=== PATIENT | male | born 1955 | race Caucasian/White ===

== ENCOUNTER 2018-08-04 14:33 | Outpatient (REF) | payer MEDICAID, SELFPAY ==
[2018-08-07 09:16] LABS: PSA, Screening 1.6 ng/ml (0-4.5)
== END 2018-08-04 14:53 ==
LOC: NCHCN 14:33
PROVIDERS: Visit Provider Nurse Practitioner Family
DX: K11.7 Disturbances of salivary secretion (principal); R41.3 Other amnesia; I82.402 Acute embolism and thrombosis of unspecified deep veins of left lower extremity; F41.9 Anxiety disorder, unspecified; R13.10 Dysphagia, unspecified; J44.9 Chronic obstructive pulmonary disease, unspecified; Z87.891 Personal history of nicotine dependence; Z00.00 Encounter for general adult medical examination without abnormal findings
CPT/HCPCS: 84153

== ENCOUNTER 2018-11-07 09:42 | Outpatient (REF) | payer MEDICAID, SELFPAY | END 2018-11-07 10:02 | LOC: NCHCN 09:42 | PROVIDERS: Visit Provider Nurse Practitioner Family | DX: R13.10 Dysphagia, unspecified (principal); K11.7 Disturbances of salivary secretion | CPT/HCPCS: 83519 ==

== ENCOUNTER 2019-04-05 22:37 | Outpatient (REF) | payer MEDICAID, SELFPAY ==
[2019-04-05 21:32] LABS: Folate 16.8 ng/mL (8.6-20.0)
== END 2019-04-05 22:57 ==
LOC: NCHCN 22:37
PROVIDERS: PCP Nurse Practitioner Family; Visit Provider Nurse Practitioner Family
DX: R53.83 Other fatigue (principal)
CPT/HCPCS: 82746

== ENCOUNTER 2020-02-26 08:12 | Outpatient (CLI) | payer MEDICAID, SELFPAY ==
[2020-02-27 03:57] LABS: COVID-19 RT-PCR UVMMC Result Negative (Negative)
== END 2020-02-26 08:32 ==
PROVIDERS: PCP Nurse Practitioner Family; Visit Provider Family Medicine
DX: Z11.59 Encounter for screening for other viral diseases (principal)
CPT/HCPCS: U0003

== ENCOUNTER 2020-02-29 02:47 | Outpatient (CLI) | payer MEDICAID, SELFPAY ==
--- NOTE | 2020-03-03 16:01 | W.PFT ---
Date of service: 02/29/20 Time of Service: 10:04 Pulmonary Function Test Result Interpretation Spirometry: Shows mild obstructive airways disease. No bronchodilator testing was carried out. Respiratory neuromuscular function testing shows extremely low MEP, with slightly low MIP. MVV was not carried out. Lung Volumes: Not done Diffusion Capacity: Not done Airway Pressure: Not done Impression mild obstructive airways disease. No bronchodilator testing was carried out. Respiratory neuromuscular function testing shows extremely low MEP, with slightly low MIP. MVV was not carried out. Clinical correlation recommended Clinical Correlation therefore is recommended.
== END 2020-02-29 03:07 ==
PROVIDERS: PCP Nurse Practitioner Family; Visit Provider Psychiatry & Neurology Neurology
DX: G12.22 Progressive bulbar palsy (principal); R06.09 Other forms of dyspnea; Z87.891 Personal history of nicotine dependence
CPT/HCPCS: 94010

== ENCOUNTER 2020-12-11 16:01 | Emergency (ER) | payer MEDICARE, MEDICAID, SELFPAY ==
[2020-12-11 16:14] VITALS: BP 134/85; PULSE 96; RESP 18; TEMP 36.7; O2SAT 97
--- NOTE | 2020-12-11 16:54 | ED.GENADUL_ITS ---
Discharge Plan Disposition Patient Disposition: HOME Condition: Stable Discharge Details Clinical Impression: Trouble swallowing Primary Care Provider: Harika Alva ED Provider: Kim Iglesias Home Meds and New Rx's Prescriptions: Continued Flovent HFA 110 mcg/actuation HFA aerosol inhaler 1 puff IH BID RF: 0 scopolamine base 1 mg over 3 days patch 3 day 1 patch TD Q72H Qty: 10 RF: 3 atropine 1 % drops 1 drp PO .COMPLEX Qty: 15 RF: 3 epinephrine [EpiPen 2-James] 0.3 MG/0.3 ML auto-injector 0.3 mg IM ONCE PRNRF: 0 Combivent Respimat 4 GM mist 1 puff Inhalation BID RF: 0 clonazepam 0.5 MG tablet 0.25 - 0.5 mg PO PRN PRNRF: 0 No Action disulfiram [Antabuse] 500 mg tablet 500 mg PO BID Qty: 90 RF: 0 Discharge Instructions Instructions: Esophageal Foreign Body (ED), Dysphagia (ED) Additional Instructions: Please follow-up as directed by Dr. Marie and hospice care team. You may try Gauri-Drumore, suction. Follow up with primary care provider in 3-5 days. Return to ED sooner if any worsening or concerns. Increase oral fluids. Referrals: Harika Alva [Primary Care Provider] - Tila Chavarria MD [ [facility] STAFF PHYSICIAN] - Discharge Data Discharge Date/Time-TO BE ENTERED AT DEPARTURE: 12/11/20 18:22 Medical Decision Making 65-year-old male with history of ALS presents to the ER with chief complaint difficulty swallowing. He states that he is on a soft and liquid diet mostly due to his history of ALS. He does have chronic dysphagia. He states that he was eating cake, soup and yogurt earlier today and is having trouble swallowing his secretions. They are concerned for possible aspiration. He does have some rhochi noted to his left lower lobe which was also found by the hospice nurse today per his caregiver. He is a palliative and hospice care patient, he has a past medical history of Lyme disease syndrome, COPD, DNR/DNI, anxiety, prior shortness of breath. I did originally given patient wall suction, IV normal saline ordered labs and chest x-ray. Ordered effervesent flurries for possible foreign body. 1725: Spoke with Dr. Tila Chavarria with Palliative care who is very familiar with patients care, she recommends holding off on any work-up including chest x-ray and labs including his chronic condition of ALS patient is on hospice. She agrees to come in to evaluate patient. I did discuss this with patient and caregiver inquired if patient is aspirating would he want to be placed on antibiotics, patient shakes his head no. 1754: Dr. Chavarria Is here at bedside for patient evaluation. 181: Dr. Chavarria states that patient would like to be discharged home with no intervention. She remained hemodynamically stable throughout stay O2 sat 96% to 97% on room air, plan to discharge. HPI General Mode of arrival: ambulatory . Date/Time Provider Initiated Documentation: 12/11/20 16:12 . Limitations to Documentation: physical limitation (Nonverbal due to ALS) . Information obtained by: patient, family and old records reviewed . HPI Narrative: 65-year-old male with history of ALS presents to the ER with chief complaint difficulty swallowing. He states that he is on a soft and liquid diet mostly due to his history of ALS. He does have chronic dysphagia. He states that he was eating cake, soup and yogurt earlier today and is having trouble swallowing his secretions. They are concerned for possible aspiration. He does have some rhochi noted to his left lower lobe which was also found by the hospice nurse today per his caregiver. He is a palliative and hospice care patient, he has a past medical history of Lyme disease syndrome, COPD, DNR/DNI, anxiety, prior shortness of breath. Related Data Home Medications Medication Instructions Recorded Confirmed clonazepam 0.25 - 0.5 mg PO PRN PRN 08/26/15 12/11/20 epinephrine [EpiPen 2-James] 0.3 mg IM ONCE PRN 07/11/17 12/11/20 Combivent Respimat 1 puff INHALATION BID inhaler 01/17/18 12/11/20 fluticasone propionate 110 1 puff IH BID 12/25/19 12/11/20 mcg/actuation HFA aerosol inhaler disulfiram 500 mg tablet 500 mg PO BID #90 tab 07/04/20 07/04/20 atropine 1 % eye drops 1 drp PO .COMPLEX #15 ml 08/14/20 12/11/20 scopolamine base 1 mg over 3 days 1 patch TD Q72H #10 ea 08/14/20 12/11/20 transdermal patch Previous Rx's Medication Instructions Recorded disulfiram 500 mg tablet 500 mg PO BID #90 tab 07/04/20 atropine 1 % eye drops 1 drp PO .COMPLEX #15 ml 08/14/20 scopolamine base 1 mg over 3 days 1 patch TD Q72H #10 ea 08/14/20 transdermal patch Allergies Allergy/AdvReac Type Severity Reaction Status Date / Time hornet venom Allergy Severe Anaphylaxsi Unverified 03/01/18 09:54 s codeine Allergy Unknown Unverified 03/01/18 09:54 General Stated Complaint: ThroatFB VIOLET: 3 Review of Systems Narrative: Constitutional: , alert and oriented, nonverbal, well groomed, normal body habitus, appears un comfortable. HEENT: Denies trauma, headaches, blurry vision, nasal discharge, sore throat, report trouble swallowing secretions possible retained foreign body. At this time it is seem to be chronic for him and his condition. Chest: Denies chest pain, palpitations, irregular rhythm, hypertension. Respiratory: Denies Shortness of breath, hemoptysis. GI: Denies abdominal pain, nausea, vomiting, diarrhea, constipation. : Denies dysuria, hematuria, flank pain, rectal bleeding. Neuro: Denies dizziness, blurry vision, syncope, headache or facial numbness. Hematologic: Denies easy bruising, intolerance to heat or cold, hair loss. [facility] Medical History Abdominal weakness Severely low MEP reflects severely low strength of the abdominal muscles and other expiratory muscles. Abnormal pulmonary function test severely low MEP ALS (amyotrophic lateral sclerosis) bulbar type pt still holding out hope dx is wrong Alternative medicine sees gymnastics coach or instructor, chiropractor uses supplements and hyperbaric chamber taking antabuse as Lyme protocol advised that it is clear to others that alternative medication is not working Anticipatory grief Anxiety Aspiration pneumonia Bee sting allergy COPD (chronic obstructive pulmonary disease) DNI (do not intubate) DNR (do not resuscitate) Drooling constant Dysarthria no longer verbal as of Sep 2020 Given this, visits are quite long. He has to type out all his questions and answers and other comments. 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 Clear diagnosis to allopaths. Sad Shortness of breath Unintentional weight loss from 190 to 125 lbs over last year Vitamin B 12 deficiency takes weekly supplement IM ordered by gymnastics coach or instructor I gave him a second injection today (10/23/20)--as I did at prior visit. He thinks it helps. Surgical History H/O hernia repair History of orthopedic surgery Family History Son No problems noted. Father , aged 90 from a stroke Stroke Hypertension Mother , age 80 No problems noted. Daughter Parent-child estrangement nec Social History Smoking/Tobacco Use Status: Former Tobacco Use Tobacco: How many years used: 30 Second Hand Exposure: No Smoking risk assessment performed?: Yes Alcohol Intake: current Alcohol Intake frequency: holidays/special occasions only Drug use: Never Caregiver/Support person: Yes ( ex- lives next door; childhood friend from [place] visits) Household members: none Housing: house Number of Children: 2 number of grandchildren: 3 Communication Needs: Language Barriers Education Level: college Do you need help understanding health information?: Rarely current occupation: farmer vegetable, 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 Pets and animals: Yes (Dingo the dog; unnamed shook and black kittens) Pets and animals: cat(s) and dog(s) Do you think of yourself as: straight/heterosexual Current gender identity: male What is your relationship status?: How often do you talk on the phone with friends or family?: never How often do you get together with friends or relatives?: three or more times per week Panel score (0-1 are the most socially isolated patients): 1 What type of physical activity do you participate in: walking Duration: 15-30 minutes/day Frequency: daily Special adriel needs: No Seatbelt use: always Working smoke detector in home: Yes Fire extinguisher in home: Yes Do you feel safe at home: Yes Do you feel safe in your relationship?: Yes Additional Social history: His ex-, who is still his close friend, lives next door and visits daily. Their son, Efraín, lives in [place]. Daughter from earlier relationship lives in [place]. Never in her life. Jaden no longer verbal; his dyspnea limits his activity. By nature, he is very independent. He has noticed that his symptoms started progressing more rapidly in September 2019, even faster since December 2019. He has plans in place: COL[employer], eventually act 39. He met with pharmacist; he has the medications and rectal tube in his home. Planning on using meds this spring. Exam Narrative Exam Narrative: Constitutional: Alert and oriented x3. Appears stated age. Normal body habitus. Head: Normocephalic, no trauma. Eyes: Pupils PERRLA, Red reflex noted, EOM's intact. Eyelids symmetrical without lesions, discharge, or swelling. ENT: Bilateral TM's WNL, External ear normal to inspection, no mastoid TTP, swelling, or erythema, Nasal turbinates WNL, no nasal discharge. Normal dentition, Posterior pharynx WNL, no exudate. Chest: RRR, Normal S1, S2, distal pulses intact. Resp: There is rhonchi auscultated to left lower base. No wheezing no stridor Abdomen: Soft, nondistended nontender to palpation all 4 quadrants. Musculoskeletal: Normal gait, generalized weakness this is patient's baseline per caregiver. Skin: No suspicious rashes or lesions. Capillary refill less than 2 sec. Neurologic: Cranial nerves II-XII intact. Alert and oriented x 3. DTR's intact. Hematologic/Lymphatic: No ecchymosis, no lymphadenopathy. Course Vital Signs Vital signs: Vital Signs Temperature 36.7 C 12/11/20 16:14 Pulse 96 H 12/11/20 16:14 Respiratory Rate 18 12/11/20 16:14 Blood Pressure 134/85 12/11/20 16:14 Pulse Oximetry 97 12/11/20 16:14 Temperature 36.7 C 12/11/20 16:14 Pulse 96 H 12/11/20 16:14 Respiratory Rate 18 12/11/20 16:14 Respiratory Effort Non-Labored 12/11/20 16:20 Respiratory Pattern Normal 12/11/20 16:20 Blood Pressure 134/85 12/11/20 16:14 Blood Pressure Position Sitting 12/11/20 16:14 Pulse Oximetry 97 12/11/20 16:14 Oxygen Delivery Method Room Air 12/11/20 16:14 Oxygen Flow Rate 0 12/11/20 16:14
--- NOTE | 2020-12-11 18:51 | PCNE_ITS ---
Date of service: 12/11/20 Time of Service: 16:51 History of Present Illness History of Present Illness Chief Complaint: end stage ALS, hospice pt, dysphagia Narrative: I met with Jaden and his ex-/support person, Neela. 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 He is on hospice with [facility]. Neela tells me and Jaden types to me (he carries his voice-generating computer with him) that the hospice nurse, Vanessa, sent him to [facility] ER as he couldn't swallow and seemed to have excess secretions in his upper airway. I talked to Kim Iglesias, ER, before heading over to see him. Se was about to order labs and a CXR, when I explained that this was not in keeping with Jaden's wishes. Jaden was clear again today that he wishes to at home, he does not want to be hospitalized he does not want IVF or IV antibiotics. He was frightened earlier today when he was having so much trouble swallowing at home. That was why he agreed to have his ex-, Neela, transport him to the ER. He was hoping the ER team could do some deep suctioning and clear out all his secretions. He does have suction set up at home. He did not try it, it seems. He recently stopped his scolpolamine patch as he thought it was making him foggy. He was very clear again today that his desire is to be at home. He wants to in his home (ideally on his porch), with his dog by his side. He does have medication at home for Medical Aid in Dying (Act 39). If he were to use it, he would need to administer the medication rectally. He has a rectal tube at home for this purpose. He has lost another 10+ lbs in the last month or two. He weighed 125 lbs at his last PCP office visit. His weight today including his clothes workboots book etc (all on his bed when he was weighed). He appears cachectic. He is constantly drooling. He cannot speak. Jaden has still not filled out his will. He has not set a date for taking his MAID medications. I noted that he has declined significantly since I last saw him. I think his life expectancy is measured in weeks, not months. Consults Consult date: 12/11/20 Requesting physician: Kim Iglesias Assessment and Plan Assessment and plan (1) Trouble swallowing: Status: Acute Assessment and plan: There is no intervention that will give Kris sense of being able to swallow. He has end-stage bulbar ALS. His swallowing will only get worse. He does have suction available at home. He has not been using it. Encouraged him to do so and to avoid thin liquids. (2) Fear of : Status: Chronic Assessment and plan: Severe. Reverts to denial as his basic form of coping. His life expectancy is in weeks, even if he does not use Act 39 medications, in my opinion. (3) ALS (amyotrophic lateral sclerosis): Status: Chronic Assessment and plan: Bulbar type. End-stage. On hospice for same. No interentions that will make him feel significantly better. He has consistently chosen not to have a feeding tube (initially offered a year ago). (4) Unintentional weight loss: Status: Chronic Assessment and plan: I saw him shirtless: he has little to no subcutaneous fat on his torso. His skin hands loose on him. I suspect he weighs less than the 125 he weighed last month. He is cachectic. (5) Hospice care patient: Status: Chronic Assessment and plan: From [facility]. I talked to their medical or surgical instrument maker, Dr Cookie Rawls, and informed her that I counseled ER provider not to order labs and a CXR. Jaden reiterated that he would not want to be admitted. He would not want IVF. He would not want IV antibiotics, or even oral antibiotics. Ex- Neela was bringing him home by private care. We did discuss getting his friend Guerrero over from [place] to spend the week with him. Jaden really should have someone with him 18/04 at this point in his life. (6) Dysarthria: Status: Chronic Assessment and plan: He cannot speak at all now, He communicated by speech board/computer. (7) Drooling: Status: Chronic Assessment and plan: Constant. Likely worse since he took off his scolpolamine patch. (8) Dysphagia: Status: Chronic Assessment and plan: I explained that his swallowing will only get worse with time. (9) Progressive bulbar palsy: Status: Chronic Assessment and plan: Diagnosed by Dr Law at [facility] about 1.5 years ago. Review of Systems Constitutional Constitutional: Reports fatigue, Reports lethargy, Reports poor appetite, Reports weakness and Reports weight loss Eyes Eyes: Reports requires corrective lenses ENT Ears, Nose, Mouth, and Throat: Reports change in voice, Reports dysphagia, Reports dizziness and Reports disequilibrium Comments: constant drooling he cannot swallow Cardiovascular Cardiovascular: Reports lightheadedness and Reports dyspnea Respiratory Respiratory: Reports cough, Reports excessive phlegm production and Reports dyspnea Comments: He chokes on his food all the time now. Thin liquids hardest to manage. ALso with thick white phlegm all the time. Gastrointestinal Gastrointestinal: Reports dysphagia Musculoskeletal Musculoskeletal: Reports atrophy, Reports loss of height and Reports muscle weakness Comments: Hard for him to lift his arms up over his head. Hard to get himself dressed. Cannot sit up easily. Losing more muscle strength. Integumentary/Breasts Skin/Breast: Reports dry skin Neurologic Neurologic: Reports abnormal speech (cannot speak), Reports dizziness, Reports memory loss, Reports disequilibrium and Reports weakness Psychiatric Psychiatric: Reports anxiety, Reports difficulty concentrating, Reports hopelessness, Reports anhedonia and Reports memory loss Endocrine Endocrine: Reports fatigue [facility] Medical History Abdominal weakness Severely low MEP reflects severely low strength of the abdominal muscles and other expiratory muscles. Abnormal pulmonary function test severely low MEP ALS (amyotrophic lateral sclerosis) bulbar type pt still holding out hope dx is wrong Alternative medicine sees clinical assistant, chiropractor uses supplements and hyperbaric chamber taking antabuse as Lyme protocol advised that it is clear to others that alternative medication is not working Anticipatory grief Anxiety Aspiration pneumonia Bee sting allergy COPD (chronic obstructive pulmonary disease) DNI (do not intubate) DNR (do not resuscitate) Drooling constant Dysarthria no longer verbal as of Sep 2020 Given this, visits are quite long. He has to type out all his questions and answers and other comments. 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 Clear diagnosis to allopaths. Sad Shortness of breath Unintentional weight loss from 190 to 125 lbs over last year Vitamin B 12 deficiency takes weekly supplement IM ordered by clinical assistant I gave him a second injection today (10/23/20)--as I did at prior visit. He thinks it helps. Surgical History H/O hernia repair History of orthopedic surgery Family History Son No problems noted. Father , aged 90 from a stroke Stroke Hypertension Mother , age 80 No problems noted. Daughter Parent-child estrangement nec Social History Smoking/Tobacco Use Status: Former Tobacco Use Tobacco: How many years used: 30 Second Hand Exposure: No Smoking risk assessment performed?: Yes Alcohol Intake: current Alcohol Intake frequency: holidays/special occasions only Drug use: Never Caregiver/Support person: Yes ( ex- lives next door; childhood friend from [place] visits) Household members: none Housing: house Number of Children: 2 number of grandchildren: 3 Communication Needs: Language Barriers Education Level: college Do you need help understanding health information?: Rarely current occupation: farmer tree fruit and nut crops, 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 Pets and animals: Yes (Dingo the dog; unnamed shook and black kittens) Pets and animals: cat(s) and dog(s) Do you think of yourself as: straight/heterosexual Current gender identity: male What is your relationship status?: How often do you talk on the phone with friends or family?: never How often do you get together with friends or relatives?: three or more times per week Panel score (0-1 are the most socially isolated patients): 1 What type of physical activity do you participate in: walking Duration: 15-30 minutes/day Frequency: daily Special adriel needs: No Seatbelt use: always Working smoke detector in home: Yes Fire extinguisher in home: Yes Do you feel safe at home: Yes Do you feel safe in your relationship?: Yes Additional Social history: His ex-, who is still his close friend, lives next door and visits daily. Their son, Efraín, lives in [place]. Daughter from earlier relationship lives in [place]. Never in her life. Jaden no longer verbal; his dyspnea limits his activity. By nature, he is very independent. He has noticed that his symptoms started progressing more rapidly in September 2019, even faster since December 2019. He has plans in place: COLST, eventually act 39. He met with pharmacist; he has the medications and rectal tube in his home. Planning on using meds this spring. Exam Const General: cooperative, no acute distress, frail appearing and ill appearing Nutritional Appearance: cachectic Orientation: alert, awake and oriented x3 HENMT Head: normocephalic and atraumatic Ears: hearing grossly normal bilaterally General nose exam: external nose normal Face and sinus: normal facial exam and face symmetric Mouth: moist mucous membranes and drooling Eyes Conjunctivae: conjunctivae normal Sclera: sclerae normal Neck Neck: no lymphadenopathy Resp Effort & Inspection: normal respiratory effort, not able to speak in complete sentences, no cough, not labored, no pursed lip breathing, no respiratory distress, not tachypneic and no use of accessory muscles Auscultation: clear to auscultation bilaterally Cardio Jugular venous pressure: no JVD Rate: regular rate Rhythm: regular rhythm Heart Sounds: S1 normal and S2 normal GI Inspection: scaphoid Palpation: soft Auscultation: normal bowel sounds Skin General skin exam: dry skin Lesions: no lesions Rashes: no rashes Hair: normal Nails: dystrophic Neuro General: patient alert, patient awake and patient oriented x3 Cranial Nerves: facial strength abnormal and abnormal gag reflex Cognition: normal cognition Speech: abnormal speech Motor: strength abnormal Extrem General: muscle atrophy Psych Appearance: disheveled Speech and Movement: mute and slowed movement Mood: anxious mood and dysthymic mood Affect: sad, anxious affect and dysphoric affect Attitude: cooperative Thought Process: impoverished Thought Content: delusions Insight: fair Judgment: fair Other: ex- Neela reports that Jaden still talks about getting better one day he is in denial much of the time; he doesn't acknowledge that he is getting close to dying I was very tien with him today and suggested IF he intends to use his Act 39 medications, he should be setting a date soon, as he wants to have his best friend and his son, both of whom live in [place], present at the time of his . Results Last Vital Signs Temp 98.1 F 12/11/20 16:14 Pulse 96 H 12/11/20 16:14 Resp 18 12/11/20 16:14 BP 134/85 12/11/20 16:14 Pulse Ox 97 12/11/20 16:14 Labs Result diagrams: 12/11/20 16:59 12/11/20 16:59 Labs: Laboratory Results - last 24 hr 12/11/20 12/11/20 16:59 16:59 WBC Cancelled RBC Cancelled Hgb Cancelled Hct Cancelled MCV Cancelled MCH Cancelled MCHC Cancelled RDW Cancelled Plt Count Cancelled MPV Cancelled Immature Gran % Cancelled Neutrophils % Cancelled Band Neutrophils % Cancelled Lymphocytes % Cancelled Atypical Lymphs % Cancelled Monocytes % Cancelled Eosinophils % Cancelled Basophils % Cancelled Metamyelocytes % Cancelled Myelocytes % Cancelled Promyelocytes % Cancelled Other Cells % Cancelled Nucleated RBC % Cancelled Absolute Neutrophils Cancelled Absolute Lymphocytes Cancelled Absolute Monocytes Cancelled Absolute Eosinophils Cancelled Absolute Basophils Cancelled RBC Morphology Cancelled Polychromasia Cancelled Hypochromasia Cancelled Poikilocytosis Cancelled Basophilic Stippling Cancelled Anisocytosis Cancelled Microcytosis Cancelled Macrocytosis Cancelled Spherocytes Cancelled Tear Drop Cells Cancelled Ovalocytes Cancelled Stomatocytes Cancelled [place] Bodies Cancelled [place] Cells/Echinocytes Cancelled Acanthocytes (Spur) Cancelled Schistocytes Cancelled Sodium Cancelled Potassium Cancelled Chloride Cancelled Carbon Dioxide Cancelled Anion Gap Cancelled BUN Cancelled Creatinine Cancelled Estimated GFR/1.73 m2 Cancelled Glucose Cancelled Calcium Cancelled Magnesium Cancelled Total Bilirubin Cancelled AST Cancelled ALT Cancelled Alkaline Phosphatase Cancelled Total Protein Cancelled Albumin Cancelled
== END 2020-12-11 18:22 | disposition home or self-care (01) ==
PROVIDERS: Emergency Provider Registered Nurse Emergency; PCP Nurse Practitioner Family
DX: R13.10 Dysphagia, unspecified (principal); G12.22 Progressive bulbar palsy; Z51.5 Encounter for palliative care
CPT/HCPCS: 80053; 99255; 99282; 83735; 85025; 99283